=== PATIENT | male | born 1965 | race Caucasian/White ===

== ENCOUNTER 2016-04-14 08:55 | Emergency (ER) | payer MEDICARE, OTHER ==
[~2016-04-14] VITALS: Ht 177.8 cm; Wt 72.0 kg
[~2016-04-14 08:55] MED LIST: COLC0.6T6 PO; IND50 PO; [UNRECOGNIZED DRUG - REMARK]
[2016-04-14 08:59] VITALS: Ht 177.8 cm; Wt 72.0 kg
[2016-04-14] MEDS ORDERED: ACETAMINOPHEN 325 MG TAB PO ONE (10:00)
--- NOTE | 2016-04-14 10:22 | RADRPT ---
PROCEDURE: XR Ankle. CLINICAL INDICATION: Pain TECHNIQUE: AP, oblique and lateral views of the right ankle were performed. COMPARISON: 10/18/2012 FINDINGS: There is normal mineralization and alignment. Bony spur identified along the dorsal surface of the t alus and anterior aspect of the distal tibia. There is narrowing of the tibiotalar joint . The tabitha nts are normal. Osseous structures appear osteopenic. No soft tissue abnormality is present. IMPRESSION: Degenerative changes of the ankle with a bony spur along the dorsal surface of the talus and anteri or distal tibia. Findings can be seen in anterior ankle impingement. RPTAT: QQ .April Razo MD, MD Date Time Electronically viewed and signed by .April Razo MD, on 04/14/2016 10:22 .Ricarda/
[2016-04-14] MEDS ORDERED: HYDR-906 PO (11:00)
--- NOTE | 2016-04-14 13:08 | ERD ---
ER Documentation Chief Complaint Date/Time DATE: 04/14/16 TIME: 13:05 Chief Complaint RT HEEL PAIN X 3 DAYS HPI Patient is a 50-year-old homeless male with a past medical history of rheumatoid arthritis and gout who presents to the ED with right ankle pain 4 days. He denies any trauma or triggering factor. He states that he has difficulty walking and putting pressure on his right foot. He states that he had a accident to his right ankle 25 years ago and states that he did not have surgery. He denies radiation of pain. He states that the pain is located to the lateral side of his right ankle. Denies swelling, redness. Denies fever or chills. He states that he has taken Tylenol for his symptoms and a few [place] that he got from his friend. He states that that helped with the pain. Denies chest pain, shortness of breath or difficulty breathing. Denies pain his knee or hip. Denies calf swelling or redness. Denies recent travel or recent surgeries. No other complaints. ROS All systems reviewed and are negative except as per history of present illness. Medications Home Meds Active Scripts Hydrocodone/Acetaminophen ([place] 5-325 Tablet) 1 Each Tablet, 1 TAB PO Q6H Y for PAIN, #7 TAB Prov:NISHI CALDERON PA-C 04/14/16 Indomethacin* (Indocin*) 50 Mg Cap, 50 MG PO TID, #20 CAP Prov:CHARLES MOSES DO 09/15/15 Colchicine* (Colcrys*) 0.6 Mg Tablet, 0.6 MG PO ONCE, #1 TAB Prov:CHARLES MOSES DO 09/15/15 Reported Medications [Pt. admits non-compliance with psych meds] No Conflict Check 06/29/13 Indomethacin* (Indocin*) 50 Mg Cap, 50 MG PO QID 09/25/12 Allergies Allergies: Coded Allergies: No Known Allergy (Unverified , 11/18/13) PMhx/Soc History of Surgery: Yes (clavicular surgery) Anesthesia Reaction: No Hx Neurological Disorder: No Hx Respiratory Disorders: No Hx Cardiac Disorders: No Hx Psychiatric Problems: Yes (SI, DEPRESSION, SCHIZOPHRENIA) Hx Miscellaneous Medical Probl: Yes (rhumatoid arthritis, GOUT) Hx Alcohol Use: No Hx Substance Use: Yes (METH, COCAINE (PREVIOUSLY USED)) Hx Tobacco Use: No Smoking Status: Former smoker FmHx Family History: No coronary disease, No diabetes, No other Physical Exam Vitals Vital Signs Date Time Temp Pulse Resp B/P Pulse Ox O2 Delivery O2 Flow Rate FiO2 04/14/16 08:59 99.1 118 18 133/94 99 Physical Exam GENERAL: Well-developed, well-nourished male. Appears in mild distress. HEAD: Normocephalic, atraumatic. EYES: Pupils are equally reactive bilaterally. EOMs grossly intact. No conjunctival erythema. ENT: Moist mucous membranes. No uvula deviation. No kissing tonsils. No exudates. NECK: Supple. No lymphadenopathy or thyromegaly. No meningismus. negative kernig. negative brudinski. LUNG: Clear to auscultation bilaterally. No rhonchi, wheezing, rales or coarse breath sounds. HEART: Regular rate and rhythm. No murmurs, rubs or gallops. Extremities: Equal pulses bilaterally. No peripheral clubbing, cyanosis or edema. No unilateral leg swelling. Negative Meza test. negative Homans sign. Tenderness to the lateral aspect of his right lateral malleolus. No swelling or ecchymosis. No erythema. No warmth. Pulses intact bilaterally. Pain with pressure to that area. Strength is limited in the right foot. As he has pain when he applies pressure NEUROLOGIC: Alert and oriented. Moving all four extremities. Normal speech. Nonsteady steady gait. SKIN: Normal color. Warm and dry. No rashes or lesions. Capillary refill < 2 seconds Results 24 hrs Current Medications Medications (Trade) Dose Ordered Sig/Omari Route PRN Reason Start Time Stop Time Status Last Admin Dose Admin Acetaminophen (Tylenol Tab) 650 mg ONCE ONCE PO 04/14/16 10:00 04/14/16 10:01 DC 04/14/16 09:39 Procedures/MDM ER COURSE: I kept the patient and/or family informed of laboratory and diagnostic imaging results throughout the emergency room course. EKG, MONITORS, & DIAGNOSTIC IMAGING: [place] [id number] Radiology Main Line: [phone] DIAGNOSTIC IMAGING REPORT Patient: TRENT BROWN : 1965 Age: 50 Sex: M MR #: [id number] DOS: 04/14/16 0929 Ordering MD: NISHI CALDERON PA-C Location: [facility] Room/Bed: PROCEDURE: XR Ankle. CLINICAL INDICATION: Pain TECHNIQUE: AP, oblique and lateral views of the right ankle were performed. COMPARISON: 10/18/2012 FINDINGS: There is normal mineralization and alignment. Bony spur identified along the dorsal surface of the talus and anterior aspect of the distal tibia. There is narrowing of the tibiotalar joint . The joints are normal. Osseous structures appear osteopenic. No soft tissue abnormality is present. IMPRESSION: Degenerative changes of the ankle with a bony spur along the dorsal surface of the talus and anterior distal tibia. Findings can be seen in anterior ankle impingement. RPTAT: QQ .April Razo MD, MD Date Time Electronically viewed and signed by .April Razo MD, MD on 04/14/2016 10:22 .M/ CC: NISHI CALDERON PA-C MEDICAL DECISION MAKING: This is a 50-year-old male who presents with right ankle pain. Vital signs were reviewed. Patient is afebrile. Patient is not hypoxic. Patient is not toxic or ill-appearing. Patient does have a pulse of 118 in the ED which is likely related to stress reaction and pain. Patient has ankle pain of unknown etiology. His x-ray is read by radiology Degenerative changes of the ankle with a bony spur along the dorsal surface of the talus and anterior distal tibia. Findings can be seen in anterior ankle impingement. Low suspicion for dislocation, fracture, septic joint, compartment syndrome, osteomyelitis, avascular necrosis, DVT, Achilles tendon rupture, cellulitis. At this time, unable to rule out any tendon and ligament injuries. I have low suspicion for gout. Patient was given an Luis wrap and crutches. Post Luis wrap patient was neurovascularly intact with good fit. Advised patient that he is to follow-up with orthopedics for further evaluation and possible MRI. DISCHARGE: At this time, patient is stable for discharge and outpatient management with no new complaints during the ER course. Patient was sent home with [place] and names of orthopedics in the area were given to patient. I gave patient copy of xray report. Patient will be discharged home with instructions to recheck for new or worsening symptoms such as fever, nausea, weakness, LOC and to follow up with primary care in the next 1-2 days. Patient was advised to return to the ER for any new or worsening symptoms. Plan was discussed and patient and/or family understands and agrees. Home instructions were given. Departure Diagnosis: Primary Impression: Foot pain Laterality: right Qualified Code: M79.671 - Right foot pain Condition: Stable Patient Instructions: Treating Arthritis in the Foot Referrals: NO PRIMARY,CARE PHYSICIAN (PCP) [facility] YOU HAVE RECEIVED A MEDICAL SCREENING EXAM AND THE RESULTS INDICATE THAT YOU DO NOT HAVE A CONDITION THAT REQUIRES URGENT TREATMENT IN THE EMERGENCY DEPARTMENT. FURTHER EVALUATION AND TREATMENT OF YOUR CONDITION CAN WAIT UNTIL YOU ARE SEEN IN YOUR DOCTORS OFFICE WITHIN THE NEXT 1-2 DAYS. IT IS YOUR RESPONSIBILITY TO MAKE AN APPOINTMENT FOR FOLOW-UP CARE. IF YOU HAVE A PRIMARY DOCTOR --you should call your primary doctor and schedule and appointment IF YOU DO NOT HAVE A PRIMARY DOCTOR YOU CAN CALL OUR PHYSICIAN REFERRAL HOTLINE AT . IF YOU CAN NOT AFFORD TO SEE A PHYSICIAN YOU CAN CHOSE FROM THE FOLLOWING [facility] INSTITUTIONS: [facility] [address] [place] [address] [facility] [address] [place] [address] [facility] [address] [place] [address] [facility] Urgent Care 7 a.m.- 11 p.m. Every Day of the Week NO APPOINTMENT OR AUTHORIZATION NEEDED [facility] Hours: Mon-Fri 9:00 AM - 5:00 PM Additional Instructions: Call your primary care doctor TOMORROW for an appointment during the next 1-2 days.See the doctor sooner or return here if your condition worsens before your appointment time. Follow up with orthopedics. NISHI CALDERON PA-C Apr 14, 2016 13:08
== END 2016-04-14 11:27 | disposition home or self-care (01) ==
LOC: FTE 08:55
DX: M79.671 Pain in right foot (principal); Z87.891 Personal history of nicotine dependence

== ENCOUNTER 2017-02-18 10:44 | Emergency (ER) | END 2017-02-18 15:00 | disposition home or self-care (01) ==

== ENCOUNTER 2017-05-28 08:12 | Emergency (ER) | END 2017-05-28 09:04 | disposition home or self-care (01) ==

== ENCOUNTER 2017-06-09 02:22 | Inpatient (IN) | END 2017-06-13 18:15 | DRG 378 ==

== ENCOUNTER 2018-12-04 23:29 | Inpatient (IN) | payer BC, MEDICAID ==
[~2018-12-04] VITALS: Ht 177.8 cm; Wt 73.3 kg
[~2018-12-04 23:29] MED LIST changes: +APIX5TAB PO; +APIX5TAB4 PO; +CLIN300C10 PO; -COLC0.6T6 PO; +FER325 PO; -IND50 PO; +PANT40TA3 PO; +PANT40TA4 PO; -[UNRECOGNIZED DRUG - REMARK]
[2018-12-05] MEDS ORDERED: SOD CHLORIDE 0.9% 250 ML IV* ONE (05:32)
[2018-12-05] MEDS ORDERED: ACETAMINOPHEN 325 MG TAB PO SCH (06:00)
[2018-12-05] MEDS ORDERED: FUROSEMIDE 40 MG INJ IV SCH (06:00)
[2018-12-05] MEDS ORDERED: ONDANSETRON 4 MG INJ IV PRN (06:00)
[2018-12-05] MEDS ORDERED: ACETAMINOPHEN 325 MG TAB PO PRN (06:00)
[2018-12-05] MEDS: PANTOPRAZOLE (EC) 40 MG TAB PO SCH ×2 (07:59→17:48)
[2018-12-05] MEDS: morphine 2 MG INJ IV PRN (07:59)
[2018-12-05 08:49] VITALS: BP 119/63; PULSE 86; RESP 16
[2018-12-05 08:54] VITALS: Ht 177.8 cm; Wt 73.3 kg
[2018-12-05 11:26] VITALS: BP 116/80; PULSE 80; RESP 18
[2018-12-05] MEDS: ENOXAPARIN 100 MG/ML SYG SC SCH ×2 (11:43→21:29)
[2018-12-05 12:00] VITALS: PULSE 78
[2018-12-05] MEDS: FERROUS SULFATE (EC) 325 MG TAB PO SCH ×2 (12:54→21:30)
[2018-12-05 15:08] VITALS: BP 113/56; PULSE 87; RESP 18
[2018-12-05 16:36] VITALS: PULSE 97
[2018-12-05] MEDS ORDERED: WARFARIN 5 MG TAB PO SCH (17:00)
[2018-12-05 21:37] VITALS: BP 115/69; PULSE 101; RESP 18
[2018-12-06 04:00] VITALS: BP 122/67; PULSE 88; RESP 18
[2018-12-06] MEDS: morphine 2 MG INJ IV PRN ×2 (04:23→14:14)
[2018-12-06] MEDS: PANTOPRAZOLE (EC) 40 MG TAB PO SCH ×2 (06:34→17:20)
[2018-12-06 07:37] VITALS: BP 117/72; PULSE 86; RESP 20
[2018-12-06] MEDS: ENOXAPARIN 100 MG/ML SYG SC SCH (08:41)
[2018-12-06] MEDS: FERROUS SULFATE (EC) 325 MG TAB PO SCH ×2 (08:42→12:45)
[2018-12-06 11:49] VITALS: BP 110/64; PULSE 84; RESP 19
[2018-12-06] MEDS ORDERED: [UNRECOGNIZED DRUG - REMARK] XX SCH (12:30)
[2018-12-06 15:57] VITALS: BP 115/77; PULSE 83; RESP 18
[2018-12-06] MEDS ORDERED: APIXABAN 5 MG TABLET PO SCH (21:00)
== END 2018-12-06 18:40 | disposition home or self-care (01) | DRG 301 ==
LOC: E/R 23:29 → TEL 12-05 04:44
PROVIDERS: ADMIT Legal Medicine; ATTEND Legal Medicine
PROC: 30233N1 Transfusion of Nonautologous Red Blood Cells into Peripheral Vein, Percutaneous Approach (ICD-10-PCS; principal; 2018-12-05)
DX: I82.411 Acute embolism and thrombosis of right femoral vein (principal); I82.431 Acute embolism and thrombosis of right popliteal vein; M06.9 Rheumatoid arthritis, unspecified; D50.9 Iron deficiency anemia, unspecified
CPT/HCPCS: 36430; 73590; 73630; 80048; 83540; 85025; 85610; 85730; 86850; 86870; 86880; 86900; 86901; 86920; 93971; J1650; J1940; J2270; J7040; P9016

== ENCOUNTER 2018-12-10 20:57 | Emergency (ER) | payer BC, MEDICAID ==
[~2018-12-10] VITALS: Ht 177.8 cm; Wt 78.0 kg
[~2018-12-10 20:57] MED LIST changes: -PANT40TA3 PO
[2018-12-10 21:01] VITALS: Ht 177.8 cm; Wt 78.0 kg
[2018-12-11] MEDS ORDERED: CLINDAMYCIN 300 MG CAP PO ONE
[2018-12-11] MEDS ORDERED: SOD CHLORIDE 0.9% 1,000 ML IV ONE
[2018-12-11] MEDS ORDERED: ACETAMINOPHEN 325 MG TAB PO ONE (03:00)
[2018-12-11 03:03] VITALS: BP 121/82; PULSE 119; RESP 18
== END 2018-12-11 04:03 | disposition home or self-care (01) ==
LOC: E/R 20:57
DX: L03.115 Cellulitis of right lower limb (principal); K44.9 Diaphragmatic hernia without obstruction or gangrene; R07.89 Other chest pain; Z79.01 Long term (current) use of anticoagulants
CPT/HCPCS: 71045; 80048; 84484; 85025; 85610; 85730; 93005; 96360; 96361; 99285; J7030